=== PATIENT | male | born 1955 | race Caucasian/White ===

== ENCOUNTER 2022-05-05 09:54 | Emergency (ER) | payer MEDICARE, SELFPAY ==
--- NOTE | ~2022-05-05 | CT_ITS ---
EXAMINATION: CT abdomen pelvis w con DATE: 05/05/2022 10:55 INDICATION: Left lower quadrant abdominal pain. TECHNIQUE: Computed tomography (CT) of the abdomen and pelvis was performed with 100 mL Omnipaque-350 intravenous contrast. Automated exposure control and iterative reconstruction technique were employe d. The dose-length product was 345.63 mGy-cm. COMPARISON: None FINDINGS: Minimal dependent atelectasis in the bilateral lower lobes. Heart size is normal. No pericardial or p leural effusion. Small amount of focal hepatic steatosis along the ligamentum teres. Gallbladder, williamson creas, bilateral adrenal glands are normal. Small bilateral renal cysts the larger on the right measu ring 1.2 cm . A few splenic calcifications consistent with old granulomatous disease. Normal appendix . Moderate scattered colonic diverticulosis with sigmoid colon predominance. There is prominent wall thickening throughout the sigmoid colon but which appears more extensive than typical for either dive rticulitis or malignancy and would favor a focal colitis. There is a subtle thin tract of soft tissue density containing between 3 separate locations along the sigmoid colon and could not exclude fistul ous communication. There is mild fatty infiltration of the wall of the terminal ileum which can be se en in the setting of prior inflammation. Bladder is normal. No abscess or free intraperitoneal gas or fluid. No pathologically enlarged abdominal or pelvic lymphadenopathy. Mild lumbar dextroscoliosis w ith severe spondylosis. IMPRESSION: 1. Prominent wall thickening along the sigmoid colon which could be due to focal colitis either infec tious, inflammatory such as Crohn's disease or less likely ischemic in etiology with differential inc luding less likely diverticulitis or malignancy. There is also suggestion of possible fistulous commu nication between 3 separate locations along the sigmoid colon. Consider further evaluation with colon oscopy when clinically improved. Reviewed, dictated and finalized at location A. IMPRESSION: 1. Prominent wall thickening along the sigmoid colon which could be due to foca l colitis either infectious, inflammatory such as Crohn's disease or less likel y ischemic in etiology with differential including less likely diverticulitis o r malignancy. There is also suggestion of possible fistulous communication betw een 3 separate locations along the sigmoid colon. Consider further evaluation w ith colonoscopy when clinically improved.
[2022-05-05 10:12] LABS: Basophils Absolute Auto 0.1 K/mm3 (0.0-0.1); Basophils Percent Auto 1.1 % (0.2-1.2); Eosinophils Absolute Auto 0.2 K/mm3 (0-0.3); Eosinophils Percent Auto 2.5 % (0-4.4); Hematocrit 45.2 % (42.0-52.0); Hemoglobin 14.8 g/dL (14.0-18.0); Immature Granulocyte Absolute 0.02 K/mm3 (0.00-0.031); Immature Granulocyte Percent A 0.3 % (0-0.5); Lymphocytes Percent Auto 27.6 % (18.3-44.2); Mean Corpuscular HGB Conc 32.7 g/dl (32-36); Mean Corpuscular Hemoglobin 30.5 pg (26-34); Mean Corpuscular Volume 93.2 fl (80-100); Mean Platelet Volume 10.6 fl (7.4-10.4); Monocytes Absolute Auto 0.5 K/mm3 (0.1-0.6); Monocytes Percent Auto 7.1 % (2.6-8.5); Neutrophils Absolute Auto 4.7 K/mm3 (1.3-6.7); Neutrophils Percent Auto 61.4 % (45.5-73.1); Platelet Count Result 216 k/mm3 (150-375); Red Blood Count 4.85 M/mm3 (4.6-6.20); Red Cell Distribution Width 13.5 % (11.5-14.5); White Blood Count 7.6 K/mm3 (4.5-10.0)
[2022-05-05 10:15] VITALS: BP 210/114; PULSE 66; RESP 18; O2SAT 100
[2022-05-05 10:20] LABS: Alanine Aminotransferase 27 U/L (6-50); Albumin Level 4.5 g/dL (3.5-5.1); Alkaline Phosphatase 80 U/L (38-126); Anion Gap 17 mmol/L (8-16); Aspartate Amino Transferase 30 U/L (17-59); Bilirubin,Total 0.6 mg/dL (0.2-1.3); Blood Urea Nitrogen 21 mg/dL (9-20); Carbon Dioxide 23 mmol/L (22-30); Chloride 102 mmol/L (98-107); Estimated Glomerular Filt Rate 60; Glucose 116 mg/dL (65-110); Lipase 87 U/L (23-300); Potassium 3.9 mmol/L (3.4-5.0); Sodium 142 mmol/L (137-145)
--- NOTE | 2022-05-05 10:24 | ED.ABDPAIN ---
HPI - Abdominal Pain General Chief Complaint: Abdominal Pain <MIRA Macedo Last Filed: 05/05/22 17:33> Stated Complaint: abd pain, diverticulitis <MIRA Macedo Last Filed: 05/05/22 17:33> Time Seen by Provider: 05/05/22 10:17 <MIRA Macedo Last Filed: 05/05/22 17:33> History of Present Illness HPI narrative: 66-year-old male here for evaluation of intermittent left lower quadrant abdominal pain for the past 2 and half weeks. Patient states the pain is crampy and severe in nature, is coming and going, and is similar to previous diverticulitis flare-ups. He also notes constipation, he did have good relief of his pain several days ago after having a bowel movement, but notes that he is still backed up . He tried to get in contact with his PCP who recommended ED evaluation. Denies fevers, chills, nausea, vomiting, dysuria, urgency or frequency. Has no history of high blood pressure. <MIRA Macedo Last Filed: 05/05/22 17:33> Related Data Allergies/Adverse Reactions: Allergies Allergy/AdvReac Type Severity Reaction Status Date / Time No Known Allergies Allergy Verified 05/05/22 10:15 <MIRA Macedo Last Filed: 05/05/22 17:33> Review of Systems Review of Systems: Gen: Denies fevers or chills Eyes: Denies eye pain or visual change ENT: Denies congestion Respiratory: Denies shortness of breath or cough CV: Denies chest pain or palpitations GI: Reports left lower quadrant abdominal pain and constipation. Denies nausea, emesis or diarrhea denies burning, urgency, frequency or hematuria Musculoskeletal: Denies back pain or muscle pain Neuro: Denies numbness, tingling, weakness or focal weakness Skin: Denies rash Except as documented, all other systems reviewed and negative <MIRA Macedo Last Filed: 05/05/22 17:33> Exam Narrative: APPEARANCE: Well appearing, no pain in distress, well-nourished. Head: Normocephalic and atraumatic. EYES: PERRLA/EOMI, conjunctivae clear NOSE: No nasal drainage EARS: External ear normal in appearance THROAT: Oropharynx is clear. Mucous membranes are moist. NECK: Supple. No adenopathy, no masses. RESPIRATORY: Airway patent, respirations nonlabored. Clear to auscultation bilaterally, no rales, rhonchi, wheezing. CARDIOVASCULAR: Regular rate and rhythm without murmurs, rubs, or gallops. ABDOMINAL: No abdominal tenderness. Normoactive bowel sounds. Soft, nondistended. No rebound tenderness or guarding. MUSCULOSKELETAL: Extremities are warm and well-perfused. Moves all extremities well. No edema. NEURO: Normal speech. No focal neurologic deficits. SKIN: Skin is warm and dry. No rashes. PSYCHIATRIC: Normal affect/mood.. <Marie Healy PA-C - Last Filed: 05/05/22 17:33> Course INDUSTRIAL FABRIC CUTTER/PA Physician Supervision For this patient encounter, I reviewed the INDUSTRIAL FABRIC CUTTER or PA documentation, treatment plan, and medical decision making <John Kaufman MD - Last Filed: 05/06/22 07:14> Vital Signs Vital signs: Vital Signs Pulse Rate 66 05/05/22 10:15 Respiratory Rate 18 05/05/22 10:15 Blood Pressure 210/114 H 05/05/22 10:15 Pulse Oximetry 100 05/05/22 10:15 Pulse Rate 54 L 05/05/22 13:34 Respiratory Rate 18 05/05/22 13:34 Blood Pressure 183/89 H 05/05/22 13:34 Pulse Oximetry 99 05/05/22 13:34 <Marie Healy PA-C - Last Filed: 05/05/22 17:33> Vital Signs Pulse Rate 66 05/05/22 10:15 Respiratory Rate 18 05/05/22 10:15 Blood Pressure 210/114 H 05/05/22 10:15 Pulse Oximetry 100 05/05/22 10:15 Pulse Rate 54 L 05/05/22 13:34 Respiratory Rate 18 05/05/22 13:34 Blood Pressure 183/89 H 05/05/22 13:34 Pulse Oximetry 99 05/05/22 13:34 <John Kaufman MD - Last Filed: 05/06/22 07:14> MDM - Abdominal Pain MDM Narrative Medical decision making narrative: 66-year-old male here for e
[2022-05-05 10:34] VITALS: BP 179/94; PULSE 58; RESP 16; O2SAT 99
[2022-05-05 10:48] LABS: Appearance Urine Clear (Clear); Bilirubin Urine Negative (Negative); Blood Urine Negative (Negative); Color Urine Yellow (Yellow); Glucose Urine UA Negative (Negative); Ketones Urine Negative (Negative); Leukocyte Esterase Ur Negative LEU/UL (Negative); Nitrate Urine Negative (Negative); Protein Urine 2+ mg/dL (Negative); Specific Grav Ur 1.025 (1.001-1.035); Urobilinogen Urine 0.2 mg/dL (<2.0); pH Urine 5.5 (5.0-9.0)
[2022-05-05 10:59] LABS: Add Urine Microscopic? YES; Bacteria Urine Trace /hpf; Mucus Urine Heavy /lpf; WBC Urine 0-3 /hpf (0-3)
[2022-05-05 11:45] VITALS: BP 190/89; PULSE 54; RESP 16; O2SAT 100
[2022-05-05] MEDS: hydrALAZINE HCL 20 MG/ML VIAL 10 MG IV PUSH (12:43)
[2022-05-05 13:01] LABS: Lactic Acid Reflex 0.9 mmol/L (0.7-2.0)
[2022-05-05 13:34] VITALS: BP 183/89; PULSE 54; RESP 18; O2SAT 99
== END 2022-05-05 13:35 | disposition home or self-care (01) ==
PROVIDERS: Physician Assistant; Emergency Provider Emergency Medicine
DX: K57.32 Diverticulitis of large intestine without perforation or abscess without bleeding (principal)
CPT/HCPCS: 36415; 74177; 80053; 81001; 83605; 83690; 85025; 96374; 99284; J0360; Q9967

== ENCOUNTER 2022-08-04 08:09 | Outpatient (CLI) | payer MEDICARE, SELFPAY ==
[2022-08-04 18:57] LABS: Alanine Aminotransferase 42 U/L (6-50); Albumin Level 4.3 g/dL (3.5-5.1); Alkaline Phosphatase 92 U/L (38-126); Anion Gap 4 mmol/L (8-16); Aspartate Amino Transferase 52 U/L (17-59); Bilirubin,Total 0.7 mg/dL (0.2-1.3); Blood Urea Nitrogen 24 mg/dL (9-20); Calcium 9.4 mg/dL (8.4-10.2); Carbon Dioxide 31 mmol/L (22-30); Chloride 103 mmol/L (98-107); Cholesterol 171 mg/dL (0-200); Estimated Glomerular Filt Rate 60; Glucose 97 mg/dL (65-110); HDL Direct 33 mg/dL; Potassium 5.1 mmol/L (3.4-5.0); Sodium 138 mmol/L (137-145); Triglycerides 107 mg/dL (<150)
[2022-08-04 18:59] LABS: Hemoglobin A1C 5.3 % (<5.7)
[2022-08-04 19:13] LABS: LDL Cholesterol Direct 106 mg/dL
[2022-08-04 19:22] LABS: Creatinine Urine 88.3 mg/dL
[2022-08-04 19:26] LABS: MALB Creatinine Ratio 167.8 mg/g (0-30); Microalbumin Urine Random 148.2 mg/L (0-16.7)
== END 2022-08-04 08:10 | disposition home or self-care (01) ==
LOC: ANHGOSHLAB 08:11
PROVIDERS: PCP Emergency Medicine; Visit Provider Emergency Medicine
DX: I16.0 Hypertensive urgency (principal)
CPT/HCPCS: 36415; 80053; 80061; 82043; 83036

== ENCOUNTER 2022-09-07 14:18 | Outpatient (CLI) | payer MEDICARE, SELFPAY ==
[2022-09-07 19:26] LABS: Prostate Specific Antigen 0.6 ng/mL (< OR = 4.0)
== END 2022-09-07 14:19 | disposition home or self-care (01) ==
LOC: ANHGOSHLAB 14:20
PROVIDERS: PCP Emergency Medicine; Visit Provider Emergency Medicine
DX: Z12.5 Encounter for screening for malignant neoplasm of prostate (principal)
CPT/HCPCS: 36415; 84153; G0103

== ENCOUNTER → 2022-09-21 08:17 | Outpatient (CLI) | payer MEDICARE, SELFPAY ==
--- NOTE | ~2022-09-21 | US_ITS ---
Ultrasound of the Abdominal Aorta INDICATION: Tobacco use, abdominal aortic aneurysm TECHNIQUE: Grayscale, color Doppler, and pulsed Doppler images of the aorta and common iliac arteries were obtained. COMPARISON: None. FINDINGS: Maximum vascular dimensions are as follows: Proximal aorta: 2.6 cm Mid aorta: 2.1 cm Distal aorta: 1.8 cm Right common iliac artery: 1.1 cm Left common iliac artery: 1.0 cm There is no evidence of abdominal aortic aneurysm. IMPRESSION: No evidence for abdominal aortic aneurysm. Reviewed, dictated and finalized at location M. ATION ENGINEER
--- NOTE | ~2022-09-21 | CT_ITS ---
EXAMINATION:CT lung screening DATE: 09/21/2022 08:39 INDICATION: Tobacco use. Current smoker with 20 pack year history. TECHNIQUE: Computed tomography (CT) of the chest was performed without intravenous contrast. Automate d exposure control and iterative reconstruction technique were employed. The dose-length product (DLP ) was 91.18 mGy-cm. COMPARISON: CT abdomen and pelvis 05/05/2022 FINDINGS: There is an 8 mm nodule in left lower lobe, stable from 05/05/22. There are a few other nodul es in the lungs measuring up to 5 mm. A calcified left lung nodule and calcified left hilar lymph nod e are consistent with old granulomatous disease. No pleural effusion. There are nodules in the thyroi d measuring up to 1.4 cm, likely not clinically significant. There is mild bilateral gynecomastia. Th e heart size is normal. There are coronary artery calcifications. No pericardial effusion. There is a 2.4 x 1.4 cm high right paratracheal lymph node. Calcifications in the liver and spleen are consiste nt with old granulomas disc disease. There is mild thoracic spondylosis and severe cervical spondylos is. IMPRESSION: 1. Lung-RADS category 3: Probably benign. Further evaluation is recommended with noncontrast low-dose chest CT in 6 months. Reviewed, dictated and finalized at location A. RONMENTAL DIRECTOR IMPRESSION: 1. Lung-RADS category 3: Probably benign. Further evaluation is recommended wit h noncontrast low-dose chest CT in 6 months.
== END ==
PROVIDERS: PCP Emergency Medicine; Visit Provider Emergency Medicine
DX: F17.210 Nicotine dependence, cigarettes, uncomplicated (principal); R91.1 Solitary pulmonary nodule
CPT/HCPCS: 71271; 76706

== ENCOUNTER 2023-09-06 00:53 | Day surgery (SDC) | payer OTHER, SELFPAY ==
[2023-08-11 14:44] VITALS: BMI 22.1
--- NOTE | 2023-09-03 09:49 | SUR.PREOP ---
Patient called regarding upcoming procedure. Voicemail left regarding new appointment times.
--- NOTE | 2023-09-05 11:01 | PM.HPGS ---
History of Present Illness History of Present Illness Consent: Risks, benefits, and alternatives have been discussed and questions answered. Patient agrees to proceed with procedure. Chief complaint: Diverticulitis of large intestine Narrative: Yamil Reinoso is a 68 year old male was referred for colonoscopy. He states that he had diverticulitis a couple months ago. That was self diagnosed apparently, as far as I can determine, not treated. he did have diverticulitis purportedly in 2021. The CT scan that I found reads as: 1. Prominent wall thickening along the sigmoid colon which could be due to focal colitis either infectious, inflammatory such as Crohn's disease or less likely ischemic in etiology with differential including less likely diverticulitis or malignancy. There is also suggestion of possible fistulous communication between 3 separate locations along the sigmoid colon. Consider further evaluation with colonoscopy when clinically improved. obviously, he did not have a colonoscopy after that he has had multiple attacks of diverticulitis. His last colonoscopy, about 10 years ago was following an attack of diverticulitis. He remembers being very bloated and uncomfortable after the procedure and was later told that it had been done too close to his episode of diverticulitis he denies seeing blood in his stools. Review of Systems Review of Systems: All systems reviewed & are unremarkable except as noted in HPI and below PMFSH Social History Social History Smoking packs per day: 0.5 Smoking cigarettes per day: 10.0 Years smoked: 30 Smoking pack-years: 15.00 Smoking status: Current every day smoker Tobacco type: cigarettes Alcohol intake: current Drinks per week: 5 Substance use: never Substance use type: does not use Lack of Transportation: No Lack of Food: Never True Current Housing: I Have Housing Concerned About Future Housing: No Difficulty Paying Gas/Electric Bills: No Difficulty Paying for Meds: No Currently Unemployed: YES Education: Trade/Vocational Certificate Difficulty w/ Childcare or Family Care: No Living arrangements: with family Spiritual care concerns: No Meds Home Medications and Allergies Home Medications Medication Instructions Recorded Confirmed Type hydrochlorothiazide 25 mg tablet 25 mg PO DAILY #90 tabs 07/19/23 09/06/23 Rx Allergies Allergy/AdvReac Type Severity Reaction Status Date / Time No Known Allergies Allergy Verified 09/06/23 08:45 Exam Resp: Auscultation: clear to auscultation bilaterally Cardio: Rate: regular rate Rhythm: regular rhythm GI: GI Palp: Yes Soft to palpation and No Tenderness to palpation present (GI) Assessment and Plan Assessment and plan (1) Diverticulitis: Code(s): K57.92 - Diverticulitis of intestine, part unspecified, without perforation or abscess without bleeding Status: Acute
[2023-09-06 08:46] VITALS: BP 165/90; PULSE 65; RESP 20; TEMP 36.1; O2SAT 100
[2023-09-06] MEDS: LACTATED RINGERS 1,000 ML 150 ML IV CONT (08:50)
--- NOTE | 2023-09-06 09:34 | P.PNAN_ITS ---
Anes - Initial Pre Proc Eval Procedure: Operation Date: 09/06/23 09:30 Proposed Procedures p Colonoscopy - Abhishek Richmond MD Date/Time: 09/06/23 09:34 Surgeon: Abhishek Richmond MD Pre Op Diagnosis: Diverticulitis of large intestine Patient Data Age: 68 Gender: M Height: 1.83 m Weight: 66.8 kg Last Vital Signs Temp 96.9 F L 09/06/23 08:46 Pulse 65 09/06/23 08:46 Resp 20 09/06/23 08:46 BP 165/90 H 09/06/23 08:46 Pulse Ox 100 09/06/23 08:46 O2 Del Method Room Air 09/06/23 08:46 Allergies Allergy/AdvReac Type Severity Reaction Status Date / Time No Known Allergies Allergy Verified 09/06/23 08:45 Home Medications Medication Instructions Recorded Confirmed Type hydrochlorothiazide 25 mg tablet 25 mg PO DAILY #90 tabs 07/19/23 09/06/23 Rx Patient hx anesthesia problems: none Family hx anesthesia problems: none Results Review: All pre-operative results and documents have been reviewed as part of the pre- operative evaluation. [facility] Social History Social History Smoking packs per day: 0.5 Smoking cigarettes per day: 10.0 Years smoked: 30 Smoking pack-years: 15.00 Smoking status: Current every day smoker Tobacco type: cigarettes Alcohol intake: current Drinks per week: 5 Substance use: never Substance use type: does not use Lack of Transportation: No Lack of Food: Never True Current Housing: I Have Housing Concerned About Future Housing: No Difficulty Paying Gas/Electric Bills: No Difficulty Paying for Meds: No Currently Unemployed: YES Education: Trade/Vocational Certificate Difficulty w/ Childcare or Family Care: No Living arrangements: with family Spiritual care concerns: No Anes - Eval Final PreProcedure Day of Procedure 09/06/23 09:34 Patient weight: normal Heart: regular rate and rhythm Lungs: clear to auscultation Airway: Mallampati scale class II Neurological: alert and oriented Last oral intake: >/= 8 hours ASA classification: II Emergent: no Anesthetic plan: proceed Anesthesia type and monitoring: general GIVS and standard monitoring Results Review: All pre-operative results and documents have been reviewed as part of the pre- operative evaluation. Informed Consent: The patient's anesthetic plan and its attendant risks and benefits were discussed with the patient/family/POA. Questions were solicited and answers provided to the satisfaction of the patient/family/POA.
[2023-09-06 10:11] VITALS: BP 126/82; PULSE 52; RESP 23; O2SAT 100
[2023-09-06 10:21] VITALS: BP 156/99; PULSE 53; RESP 20; O2SAT 100
[2023-09-06 10:31] VITALS: BP 162/99; PULSE 56; RESP 20; O2SAT 100
== END 2023-09-06 10:38 | disposition home or self-care (01) ==
PROVIDERS: PCP Emergency Medicine; Visit Provider Internal Medicine Gastroenterology
PROC: 0DJD8ZZ Inspection of Lower Intestinal Tract, Via Natural or Artificial Opening Endoscopic (ICD-10-PCS; CPT 45378; principal; 2023-09-06 09:30)
DX: K57.32 Diverticulitis of large intestine without perforation or abscess without bleeding (principal); F17.210 Nicotine dependence, cigarettes, uncomplicated
CPT/HCPCS: 45378; J2704; J7120

== ENCOUNTER 2023-12-31 10:35 | Outpatient (CLI) | payer OTHER, SELFPAY ==
--- NOTE | ~2023-12-31 | CT_ITS ---
CT of the Abdomen and Pelvis: Indication: Diverticulitis Technique: 2.5 mm axial scans were obtained through the abdomen and pelvis following intravenous adm inistration of 100 cc of Omnipaque 350. Dose reduction technique was used on this scan by utilizing a utomated exposure control and iterative reconstruction technique. The dose-length product (DLP) was 4 31.99 mGy-cm. COMPARISON: 05/05/2022 Findings: Scans through the lung bases demonstrates stable 6 mm left lower lobe pulmonary nodule.. The liver, spleen, pancreas, gallbladder, adrenals and kidneys are within normal limits. There are at herosclerotic calcifications of the aorta. No lymphadenopathy. There is extensive bowel wall thickening of the sigmoid colon with underlying diverticular disease, s imilar to prior exam. Questionable colo-colonic fistulas are also similar similar to prior exam. Poss ible minimal pericolonic inflammatory stranding. No abscess or free air. No bowel obstruction. Images through the pelvis were performed. Urinary bladder unremarkable. No pelvic mass seen. No ascit es. Impression: Extensive wall thickening of the distal sigmoid colon, similar to prior exam. Correlate for acute mil d diverticulitis versus chronic wall thickening due to muscular hypertrophy due to underlying diverti cular disease. Reviewed, dictated and finalized at location M. Impression: Extensive wall thickening of the distal sigmoid colon, similar to prior exam. C orrelate for acute mild diverticulitis versus chronic wall thickening due to mu scular hypertrophy due to underlying diverticular disease.
[2023-12-31 10:59] LABS: Estimated Glomerular Filt Rate 50
== END 2023-12-31 10:36 ==
PROVIDERS: PCP Emergency Medicine; Visit Provider Emergency Medicine
DX: K57.92 Diverticulitis of intestine, part unspecified, without perforation or abscess without bleeding (principal)
CPT/HCPCS: 74177; Q9967

== ENCOUNTER 2024-11-08 11:11 | Outpatient (CLI) | payer OTHER, SELFPAY ==
--- OUTSIDE RECORDS SUMMARY | 2024-11-08 12:57 | XMS_ITS | Continuity of Care Document ---
Author Organization [facility] Address [address] [place] [address] Phone Care Team Providers Care Wool Buyer Name Role Phone Roly Alcala MD Unavailable Unavailable Allergies, Adverse Reactions, Alerts Substance Reaction Status Criticality No Known Drug Allergies Other Active No I nformation Medications Medication Instructions Dosage Effective Dates (start - stop) Status Comments Flagyl 500 mg tablet take 1 tablet by or al route 3 times every day - Active Cipro 500 mg tablet take 1 by Oral route 2 times every day for 7 days 1 - Active Advance Directives Directive Yes / No Effective Date File Name No Information Encounters Encounter Description Practice Location Reason(s) For Visit Diagnoses Date Provider Providers Copied on Encounter [facility], [address], [place], [place], [address] , tel: [phone] [facility] No Information -202 0 Carikendy Dunham. [address], [facility] [address], [place], [place], [address], [place]. tel:[phone] [facility], [address], [place], [place], [address] , [place] tel: [phone] [facility] No Information 1-201 8 Carikendy Dunham. [address], [facility] [address], [place], [place], [address], . tel:[phone] [facility], [address], [place], [place], [address] , [place] tel: [phone] [facility] Acute diverticulitis 8 Sam Salazar. [address] [place] [address], [facility], [place], [place], [address], [place]. tel:[phone] Referring Provider: Roly Alcala, [address] [place] [address] [address], [place], [address] . tel:[phone] [facility], [address], [place], [place], [address] , tel: [phone] [facility] Spinal enthesopathy 6 Cari Dunham. [address] [place] [address], [facility] [address], [place], [place], [address], [place]. tel:[phone] Referring Provider: Rloy Alcala, [address] [place] [address], [place], [address] . tel:[phone] [facility], [address], [place], [place], [address] , tel: [phone] [facility] Constipation, unspecified constipation typeAbdominal pain of unknown causeEncounter for screening for malignant neoplasm of prostate 6 Cari Dunham. [address] [place] [address], [place] [address], [place], [place], [address], [place]. tel:[phone] Referring Provider: Roly Alcala, [address] [place] [address], [place], [address] . tel:[phone] [facility], [address], [place], [place], [address] , [place] tel: [phone] [facility] Swelling of lymph nodeNicotine dependence, unspecified, uncomplicated 5 Halenkamp Marguerite. [address] [place] [address], [facility], [place], [place], [address]. tel:[phone] Referring Provider: Roly Alcala, [address] [place] [address], [place], [address] . tel:[phone] [facility], [address], [place], [place], [address] , tel: [phone] [facility] Lower abdominal painConstipation 5 Sam Salazar. [address] [place] [address], [facility], [place], [place], [address], . tel:[phone] Referring Provider: Roly Alcala, [address] [place] [address], [place], [address] . tel:[phone] [facility], [address], [place], [place], [address] , tel: [phone] [facility] Poison josh dermatitis 3 Sam Salazar. [address], [facility], [place], [place], [address], [place]. tel:[phone] Referring Provider: Roly Alcala, [address] [place] [address], [place], [address] . tel:[phone] [facility], [address], [place], [place], [address] , tel:[phone] [facility] Thoracic or lumbosacral neuritis or radiculitis, uDegeneration of lumbar or lumbosacral intervertebrTobac co use disorderRash and other nonspecific skin eruption 2 Sammy Mejia. [address] [place] [address], [facility] [address], [place], [place], [address]. tel:[phone] Referring Provider: Roly Alcala, [address] [place] [address], [place], [address] . tel:[phone] [facility], [address], [place], [place], [address] , tel: [phone] [facility] Tobacco use disorderDegenerat ion of lumbar or lumbosacral intervertebral discThoracic or lumbosacral neuritis or radiculitis, unspecifiedDIVERT ICULOSISDiverticu losis of colon (without mention of hemorrhage)Divert iculosis of colon (without mention of hemorrhage)zRHMSP ECIAL SCREENING FOR MALIGNANT NEOPLASMS, OTHER SITESSPECIAL SCREENING FOR MALIGNANT NEOPLASMS, OTHER SITESSPECIAL SCREENING FOR MALIGNANT NEOPLASMS, OTHER SITESAllergic rhinitis, cause unspecified 2 Sammy Mejia. [address], [address], [place], [place], [address]. tel:[phone] Referring Provider: Roly Alcala, [address] [place] [address] [address], [place], [address] . tel:[phone] [facility], [address], [place], [place], [address] , [place] tel: [phone] [facility] SEBACEOUS CYST 2 9 Cari Dunham. [address] [place] [address], [address], [place], [place], [address], [place]. tel:[phone] [facility], [address], [place], [place], [address] , [place] tel: [phone] [facility] BACKACHE NOS 2 9 Patrice Jacobson. [address] [place] [address], [address], [place], [place], [address], [place]. tel:[phone] [facility], [address], [place], [place], [address] , [place] tel: [phone] [facility] DERMATOPHYTOSIS OF GROIN 8200 6 Cari May. [address] [place] [address], [address], [place], [address], [place]. tel:[phone] [facility], [address], [place], [place], [address] , [place] tel: [phone] [facility] DVRTCLI COLON W/O HMRHG 6 Rhonda [place]. [address] [place] [address], [address], [place], [place], [address], [place]. tel:[phone] [facility], [address], [place], [address] , [place] tel:[phone] [facility] ABDMNAL PAIN UNSPCF [address] 6 Cari uDnham. [address] [place] [address], [address], [place], [place], [address], [place]. tel:[phone] [facility], [address], [place], [place], [address] , [place] tel:[phone] [facility] No Information 6 Cari Dunham. [address], [address], [place], [place], [address], [place]. tel:[phone] [facility], [address], [place], [place], [address] , [place] tel: [phone] [facility] ENTERITIS OF INFECT ORIG 6 Cari May. [address], [address], [place], [address], [place]. tel:[phone] [facility], [address], [place], [place], [address] , [place] tel: [phone] [facility] EATING DISORDER NOSTOBACCO USE DISORDER 5 Cari Dunham. [address], [address], [place], [place], [address], [place]. tel:[phone] [facility], [address], [place], [place], [address] , [place] tel: [phone] [facility] ALLERGIC RHINITIS NOSDEPRESSIVE DISORDER NEC 5 Gamichelle Mejia. [address], [address], [place], [place], [address]. tel:[phone] [facility], [address], [place], [place], [address] , [place] tel: [phone] [facility] MALAISE AND FATIGUE NECSCRN MALIG NEOP-PROSTATECONS TIPATION NOS 5 Cari Dunham. [address] [place] [address], [address], [place], [place], [address], [place]. tel:[phone] [facility], [address], [place], [place], [address] , [place] tel: [phone] [facility] OT SPCF PREOP EXAM 1 Con[facility] Doctor. [address], [place], [address], [place]. [facility], [address], [place], [address] , [place] tel: [phone] [facility] DIARRHEASCIATICA 1 Patrice Jacobson. [address] [place], [place] [address], [address], [place], [place], [address], [place]. tel:[phone] [facility], [address], [place], [place], [address] , [place] tel: [phone] [facility] SPINAL STENOSIS-LUMBAR Feb-2 0-200 1 Conversion Doctor. [address] [facility], [place], [address], [place]. Family History Family Member Type Diagnosis Age At Onset Father Problem (finding) diabetes melli tus in first degree relative Problem (finding) No family hist ory of Colon or prostate CA Problem (finding) No family hist ory of Coronary artery disease Immunizations Vaccine Date Status Comments SHINGRIX (Zoster vaccine recombinant, adjuvanted) administered Note: [facility] ; Source: Other Provider influenza, high dose seasona l, preservative-free administered Note: [facility] ; So urce: Other Provider Payers Payer name Insurance type Covered green party ID Authoriza tion(s) No Information Social History Type Description Quantity Date Captured Comments Alcohol Use Details Unknown Caffeine Use Details Unknown Tobacco Use Status Smoking Status No Information Sex Male Sexual Orientation Choose not to disclose Gender Identity Male Chief Complaint And Reason For Visit No [...]
--- OUTSIDE RECORDS SUMMARY | 2024-11-08 12:57 | XMS_ITS | Referral Summary ---
Author Organization [facility] Address [address] [facility] [place] [address] Care Team Providers Care Shipping Room Supervisor Name Role Phone Perez Alcala MD Primary Care Provider [phone] Source Comments [facility],non-owned Affiliates and Associated Physician Practices is amultiple site organization consisting of ambulatory clinics and hospital sitesin [place], [place], [place] and [place]. This disclosure is being madepursuant to the Care Everywhere program and may not contain all information available regarding this patient. Last updated 18.[facility] Allergies Active Allergy Reactions Criticality Noted Date Comments Extract Of Poison Yue 10/15/2015 Medications Be aware that medications may not be up to date on this document. Always verify current medications with the patient. No known medications Social History Tobacco Use Types Packs/Day Years Used Date Smoking Tobacco: Light Smoker Alcohol Use Standard Drinks/Week Comments Yes 0 (1 standard drink = 0.6 oz pur e alcohol) occasional Sex and Gender Information Value Date Recorded Sex Assigned at Not on file Gender Identity Not on file Sexual Orientation Not on file Last Filed Vital Signs Vital Sign Reading Time Taken Comments Blood Pressure 178/113 02/14/2016 1:05 PM CDT Pulse 52 02/14/2016 1:05 PM CDT Temperature 36.3 C (97.4 F) 02/14/2016 11:17 AM CDT Respiratory Rate 14 02/14/2016 1:05 PM CDT Oxygen Saturation 100% 02/14/2016 1:05 PM CDT Inhaled Oxygen Concentration - - Weight 74.8 kg (165 lb) 02/14/2016 11:17 AM CDT Height 182.9 cm (6') 02/14/2016 11:17 AM CDT Body Mass Index 22.38 02/14/2016 11:17 AM CDT Functional Status Functional Status Response Date of Assess ment Is person deaf or have serious hearing difficult y? No 11/22/2015 Plan of Treatment Not on file Procedures Procedure Name Priority Date/Time Associated Diagnosis Comments ENDOSCOPY, COLON, SCREENING Routine 02/14/2016 11:15 AM CDT from Last 3 Months or Most Recently Relevant to Health Maintenance Results * ENDOSCOPY, COLON, SCREENING (02/14/2016 11:15 AM CDT) Report Endoscopy POC _ Patient Name: Yamil Reinoso Procedure Date: 02/14/2016 11:15 AM Date of : 1955 Admit Type: Outpatient Age: 60 Gender: Male Attending MD: Monse Encarnacion, _ Procedure: Colonoscopy Indications: Follow-up of diverticulitis Providers: Monse Encarnacion (Doctor), Mimi Kapoor RN, Jerrica Call RN Patient Profile: 60M pmh diverticulitis earlier this year is here for followup. last exam incomplete Referring MD: Perez Alcala MD (Referring MD) Medicines: Monitored Anesthesia Care Complications: No immediate complications. _ Procedure: After I obtained informed consent, the scope was passed under direct vision. Throughout the procedure, the patient's blood pressure, pulse, and oxygen saturations were monitored continuously. The Colonoscope was introduced through the anus and advanced to the cecum, identified by appendiceal orifice and ileocecal valve. The colonoscopy was technically difficult and complex due to multiple diverticula in the colon, restricted mobility of the colon and significant looping. Successful completion of the procedure was aided by using manual pressure and withdrawing the scope and replacing with the pediatric endoscope. Impression: - Diverticulosis in the entire examined colon. - The examination was otherwise normal on direct and retroflexion views. - Erythematous mucosa in the recto-sigmoid colon (suspected endoscope trauma due to technically difficult procedure). Biopsied. - Internal hemorrhoids. Findings: The perianal and digital rectal examinations were normal. Multiple small and large-mouthed diverticula were found in the entire colon. The exam was otherwise without abnormality on direct and retroflexion views. A localized area of moderately erythematous mucosa was found in the recto-sigmoid colon at 20cm. Biopsies were taken with a cold forceps for histology. Suspect endoscope trauma Internal hemorrhoids were found during retroflexion. The hemorrhoids were small. _ Recommendation: - Discharge patient to home. - Good exam today; would Repeat colonoscopy in 10 years for screening purposes. - High fiber diet. Procedure Code(s): --- Professional --- 74953, Colonoscopy, flexible; with biopsy, single or multiple --- Technical --- 77470, Colonoscopy, flexible; with biopsy, single or multiple Diagnosis Code(s): --- Professional --- K64.8, Other hemorrhoids K63.89, Other specified diseases of intestine K57.32, Diverticulitis of large intestine without perforation or abscess without bleeding K57.30, Diverticulosis of large intestine without perforation or abscess without bleeding --- Technical --- K64.8, Other hemorrhoids K63.89, Other specified diseases of intestine K57.32, Diverticulitis of large intestine without perforation or abscess without bleeding K57.30, Diverticulosis of large intestine without perforation or abscess without bleeding CPT copyright 2015 [employer]. All rights reserved. The codes documented in this report are preliminary and upon measurement analyst review may be revised to meet current compliance requirements. Monse Encarnacion, 02/14/2016 12:46:11 PM This report has been signed electronically. Number of Addenda: 0 Note Initiated On: 02/14/2016 11:15 AM [facility] ENDOSCOPY 02/14/2016 11:1 5 AM CDT Monse Encarnacion MD GI PROCEDURE ORDERAB LES Performing Organization Address City/State/[facility] Co de Phone Number [facility] ENDOSCOPY from Last 3 Months or Most Recently Relevant to Health Maintenance Care Teams Shipping Room Supervisor Relationship Specialty Start Date End Date Perez Alcala MD [address] [place] [address], [phone] PCP - General Family Medicine 10/14/15
--- OUTSIDE RECORDS SUMMARY | 2024-11-08 12:57 | XMS_ITS | Patient Health Summary ---
Author Organization [email or web address] Address [address] [place] [address] Care Team Providers Care Tow Motor Operator Name Role Phone Perez Alcala MD Primary Care Provider [phone] Note from [email or web address],non-owned Affiliates and Associated Physician Practices is amultiple site organization consisting of ambulatory clinics and hospital sitesin [place], [place], [place] and [place]. This disclosure is being madepursuant to the Care Everywhere program and may not contain all information available regarding this patient. Last updated 18.[email or web address] Allergies * Extract Of Poison Yue Medications Be aware that medications may not [...] Mass Index 22.38 02/14/2016 11:17 AM CDT Procedures * PATHOLOGY TISSUE EXAM (STL)(Performed 02/14/2016) Performed for Diverticulitis, colon * COLONOSCOPY BIOPSY (ANY METHOD)(Performed 02/14/2016) Performed for Diverticulitis, colon * COLONOSCOPY SCREEN(Performed 02/14/2016) Performed for Diverticulitis, colon * ENDOSCOPY, COLON, SCREENING(Performed 02/14/2016) * XR ABD OBSTRUCTION SERIES 2VW(Performed 11/22/2015) Performed for Generalized abdominal pain * COLONOSCOPY SCREEN(Performed 11/22/2015) Performed for Diverticulitis of colon * ENDOSCOPY, COLON, SCREENING(Performed 11/22/2015) * GROSS + MICRO EXAM(Performed 07/07/2005) * GROSS + MICRO EXAM(Performed 03/28/2001) Results * GROSS + MICRO EXAM (STL) (02/14/2016 12:33 PM CDT) Case Report Surgical Pathology Report Case: [id number] Authorizing Provider: Monse Encarnacion MD Collected: 02/14/2016 12:33 PM Ordering Location: [facility] Received: 02/14/2016 02:04 PM Pathologist: Meredith Rocha MD Specimen: Colon Sigmoid Biopsy, biopsy erythema 02/15/2016 10:21 AM T [facility] Final Diagnosis 1. Large intestine, sigmoid colon, endoscopic biopsy: -- Lamina propria edema and vascular congestion Lauren 02/15/2016 10:[address] [facility] Gross Description The specimen is received in formalin in one container for gross and microscopic examination labeled with the patient's name Yamil Reinoso, and sigmoid biopsy, and is a pink-chapa tissue piece measuring 0.1 cm in greatest dimension. The specimen is stained with hematoxylin, wrapped in tissue paper and submitted in toto in cassette A1. JIMI/bharath 02/15/2016 10:21 AM T [facility] Microscopic Description Histologic sections show a fragment of large intestinal mucosa with mild lamina propria edema and vascular congestion. There is no significant active or chronic inflammation. There is no evidence of dysplasia or malignancy. Lauren 02/15/2016 10:21 AM T [facility] Pathology/Cytolo gy SIGMOID COLON BIOPSY SPECIMEN / Unknown 02/14/2016 12:33 PM CDT 02/14/2016 2:04 PM CDT Monse Encarnacion MD LAB - PATHOLOGY/CYTO [facility] [address], [place] [id number] * ENDOSCOPY, COLON, SCREENING (02/14/2016 11:15 AM CDT) Report Endoscopy POC _ Patient Name: Yamil Reinoso Procedure Date: 02/14/2016 11:15 AM Date of : 1955 Admit Type: Outpatient Age: 60 Gender: Male Attending MD: Monse Encarnacion, _ Procedure: Colonoscopy Indications: Follow-up of diverticulitis Providers: Monse Encarnacion (Doctor), iMmi Kapoor RN, Jerrica Call RN Patient Profile: [...] fiber diet. Procedure Code(s): --- Professional --- 05226, Colonoscopy, flexible; with biopsy, single or multiple --- Technical --- 01281, Colonoscopy, flexible; with biopsy, single or multiple [...] or abscess without bleeding CPT copyright 2015 [employer]. All rights reserved. The codes documented in this report are preliminary and upon aircraft time clerk review may be revised to meet current compliance requirements. Monse Villanuevaong, 02/14/2016 12:46:11 PM This report has been signed electronically. Number of Addenda: 0 Note Initiated On: 02/14/2016 11:15 AM [facility] 02/14/2016 11:1 5 AM CDT Monse Encarnacion MD GI PROCEDURE ORDERAB LES [facility] * XR ABD OBSTR SERIES (11/22/2015 12:00 PM CDT) Anatomical Region Laterality Modality Abdomen Radiographic Naya ging 11/22/2015 12:2 4 PM CDT Impressions 11/22/2015 12:52 PM CDT Negative for free intraperitoneal air. Edited by Lainey Balderas on 11/22/2015 12:37 PM Narrative 11/22/2015 12:52 PM CDT OBSTRUCTION SERIES. HISTORY: Abdominal pain. Views of the abdomen show a large amount of gas in large and small bowel. There is no free intraperitoneal air. Procedure Note Sandor Orr MD - 11/22/2015 OBSTRUCTION SERIES. HISTORY: Abdominal pain. Views of the abdomen show a large amount of gas in large and small bowel. There is no free intraperitoneal air. IMPRESSION Negative for free intraperitoneal air. Edited by Lainey Balderas on 11/22/2015 12:37 PM Monse Encarnacion MD DIAGNOSTIC IMAGING O RDERABLES * ENDOSCOPY, COLON, SCREENING (11/22/2015 10:25 AM CDT) Report Endoscopy POC _ Patient Name: Yamil Reinoso Procedure Date: 11/22/2015 10:25 AM Date of : 1955 Admit Type: Outpatient Age: 60 Gender: Male Attending MD: Monse Encarnacion, _ Procedure: Colonoscopy Indications: Follow-up of diverticulitis, Change in bowel habits Providers: Monse Encarnacion (Doctor), Annabelle Brennan RN, Amanda Christian, Splicer Apprentice Patient Profile: 60M pmh recent diverticulitis 1 month prior here for colonoscopy. Also noted some changes in bowel habits Referring MD: Perez Alcala MD (Referring MD) Medicines: Monitored Anesthesia Care Complications: No immediate complications. _ Procedure: After I obtained informed consent, the scope was passed under direct vision. Throughout the procedure, the patient's blood pressure, pulse, and oxygen saturations were monitored continuously. The Colonoscope was introduced through the anus and advanced to the sigmoid colon for evaluation. This was the intended extent. The colonoscopy was technically difficult and complex due to multiple diverticula in the colon, restricted mobility of the colon, significant looping, a tortuous colon and the patient's body habitus. Successful completion of the procedure was aided by withdrawing the scope and replacing with the pediatric endoscope. The quality of the bowel preparation was good. Impression: - Diverticulosis in the sigmoid colon. - Congested mucosa in the sigmoid colon. - Erythematous mucosa in the sigmoid colon. - The distal rectum and anal verge are normal on retroflexion view. Findings: The perianal and digital rectal examinations were normal. Multiple small and large-mouthed diverticula were found in the sigmoid colon. An area of moderately congested mucosa was found in the sigmoid colon. A patchy area of mildly erythematous mucosa was found in the sigmoid colon. The procedure was technically difficult despite the above maneuvers, and given presence of edema/inflammation , I did not want to proceed further and subject the risk of perforation The retroflexed view of the distal rectum and anal verge was normal and showed no anal or rectal abnormalities. _ Recommendation: - Repeat colonoscopy in 2 months because the examination was incomplete, and allow inflammation to subside Procedure Code(s): --- Professional --- 02723, 53, Colonoscopy, flexible; diagnostic, including collection of specimen(s) by brushing or washing, when performed (separate procedure) --- Technical --- 91083, 74, Colonoscopy, flexible; diagnostic, including collection of specimen(s) by brushing or washing, when performed (separate procedure) Diagnosis Code(s): --- Professional --- K63.89, Other specified diseases of intestine K57.32, Diverticulitis of large intestine without perforation or abscess without bleeding R19.4, Change in bowel habit K57.30, Diverticulosis of large intestine without perforation or abscess without bleeding --- Technical --- K63.89, Other specified diseases of intestine K57.32, Diverticulitis of large intestine without perforation or abscess without bleeding R19.4, Change in bowel habit K57.30, Diverticulosis of large intestine without perforation or abscess without bleeding CPT copyright 2015 [employer]. All rights reserved. The codes documented in this report are preliminary and upon aircraft time clerk review may be revised to meet current compliance requirements. Monse Encarnacion, 11/22/2015 11:27:42 AM This report has been signed electronically. Number of Addenda: 0 Note Initiated On: 11/22/2015 10:25 AM [facility] 11/22/2015 10:2 5 AM CDT Monse Encarnacion MD GI PROCEDURE ORDERAB LES [facility] * GROSS + MICRO EXAM (07/07/2005 4:19 PM SUPERVISOR TELEPHONE CLERKS) Only the most recent of2 resultswithin the time period is included. Result CASE NUMBER [id number] Comment: ORDERING PHYSICIAN DIEUDONNE KING SPECIMEN TYPE Colon Biopsy-SIGMOID Date 07/07/2005 Physician Ian King Gross Description The specimen is received in a formalin filled container labeled with the patient's name, Yamil Reinoso, and inflammation of sigmoid biopsy . It consists of a single chapa-red tissue measuring 0.5 x 0.2 x 0.1 cm. It is submitted entirely into a single cassette. MS/na Microscopic Exam Microsections reveals a fragment of colonic mucosa with mild and patchy chronic inflammation, slight fibrosis and vascular congestion. There is no evidence of atypia or malignancy. Gm/ Diagnosis I. Sigmoid, biopsy -- Patchy and mild chronic inflammation with slight fibrosis. Gm/ Regional Sales Representative [facility] [place] Ariana Erickson M.D. [place]. 07/08/2005 1045 <1> CPT code 07990 MISCELLANEOUS SAMPLES / Unknown 07/07/2005 4:19 PM SUPERVISOR TELEPHONE CLERKS 07/07/2005 4:20 PM SUPERVISOR TELEPHONE CLERKS Historical Provider LAB - PATHOLOGY/C YTOLOGY ORDERABLES Care Teams Tow Motor Operator Relationship Specialty Start Date End Date Perez Alcala MD [address] [place] [address], [address] [place] [address] PCP - General Family Medicine 10/14/15
--- OUTSIDE RECORDS SUMMARY | 2024-11-08 12:57 | XMS_ITS | Clinical Summary ---
Author Organization [facility] Address [address] [place] [address] Care Team Providers Care American Sign Language Teacher Name Role Phone Perez Alcala MD Primary Care Provider [phone] Source Comments [facility],non-owned Affiliates and Associated Physician Practices is amultiple site organization consisting of ambulatory clinics and hospital sitesin [place], [place], [place] and [place]. This disclosure is being madepursuant to the Care Everywhere program and may not contain all information available regarding this patient. Last updated 18.[facility] Allergies Active Allergy Reactions Criticality Noted Date Comments Extract Of Poison Yue 10/15/2015 Medications Be aware that medications may not be up to date on this document. Always verify current medications with the patient. No known medications Family History Medical History Relation Name Comments Diabetes Father Diverticulitis Mother Relation Name Status Comments Father Mother Alive Social History Tobacco Use Types Packs/Day Years [...] Mass Index 22.38 02/14/2016 11:17 AM CDT Plan of Treatment Health Maintenance Due Date Last Done Comments COLOGUARD (AGES 45-75) - COLON CA SCREENING 1955 CT COLONOGRAPHY - COLON CA SCREENING 1955 FIT - COLON CA SCREENING 1955 FLEX SIG - COLON CA SCREENING 1955 LIPID TESTING 1955 HEPATITIS C SCREENING 07/23/1972 DTAP/TDAP/TD VACCINES (1 - Tdap) 1973 PNEUMOCOCCAL VACCINE 50+ (1 of 2 - PCV) 1973 ZOSTER VACCINE (1 of 2) 2004 AAA SCREENING 2019 COVID-19 VACCINE (1 - season) 2024 INFLUENZA VACCINE (#1) 2024 DEPRESSION SCREENING 08/30/2024 COLON MONITORING 02/13/2026 02/14/2016, , 02/14/2016, Additional history exists COLONOSCOPY - COLON CA SCREENING 02/13/2026 02/14/2016, 02/14/2016, 02/14/2016, Additional history exists Colorectal Cancer Screening 02/13/2026 Respiratory Syncytial Virus (RSV) Vaccine Pt: or over 60 yrs (1 - 1-dose 75+ series) 2029 HEPATITIS B VACCINE Aged Out No longe r eligible based on patient's age to complete this topic HIB VACCINE Aged Out No longer eligi ble based on patient's age to complete this topic HPV VACCINE Aged Out No longer eligi ble based on patient's age to complete this topic MENINGOCOCCAL (Group B) VACCINE SHARED DECISION-MAKING Aged Out No longer eligible based on patient's age to complete this topic MENINGOCOCCAL GROUPS A/C/Y/W VACCINE Aged Out No longer eligible based on patient's age to complete this topic Procedures Procedure Name Priority Date/Time Associated Diagnosis [...] fiber diet. Procedure Code(s): --- Professional --- 95522, Colonoscopy, flexible; with biopsy, single or multiple --- Technical --- 28292, Colonoscopy, flexible; with biopsy, single or multiple [...] or abscess without bleeding CPT copyright 2015 [employer]. All rights reserved. The codes documented in this report are preliminary and upon b2b managed service sales exec review may be revised to meet current compliance requirements. Monse Encarnacion, 02/14/2016 12:46:11 PM This report has been signed electronically. Number of Addenda: 0 Note Initiated On: 02/14/2016 11:15 AM [facility] 02/14/2016 11:1 5 AM CDT Monse Encarnacion MD GI PROCEDURE ORDERAB LES [facility] from Last 3 Months or Most Recently Relevant to Health Maintenance Care Teams American Sign Language Teacher Relationship Specialty Start Date End Date Perez Alcala MD [address] [place] [phone] PCP - General Family Medicine 10/14/15
--- OUTSIDE RECORDS SUMMARY | 2024-11-08 12:57 | XMS_ITS | Continuity of Care Document ---
Author Organization [facility] Address [address] [place] [address] [address] [place] [address] Phone Care Team Providers Care Single Resource Boss Name Role Phone Andrew Xiao Unavailable Unavailable Procedures Procedure Date Office/outpatient Visit, Est Office/outpatient Visit, Est Remove Foreign Body From Eye Advance Directives Directive Yes / No Effective Date File Name No Information Encounters Encounter Description Practice Location Reason(s) For Visit Diagnoses Date Provider Providers Copied on Encounter Office/outpat ient Visit, [facility], [id number] [place] [address] [address], [place], [place], [id number], [place] tel:[phone] [facility] No Information Nov-0 9-200 9 Dameon Morales. [address] [facility] [address], [place], [place], [facility], . tel:[phone] Office/outpat ient Visit, [facility], [address] [place] [address] [address], [place], [place], [id number], [place] tel:[phone] [facility] No Information Nov-0 4-200 9 Octavio Reina. [address] [facility] , [address], [place], [place], [facility], [place]. tel:[phone] [facility], [address], [place], [place], [id number], [place] tel:[phone] [facility] No Information Apr-2 2200 9 Dameon Morales. [address] [facility] [address], [place], [address], [place]. tel:[phone] Family History Family Member Type Diagnosis Age At Onset No Information Payers Payer name Insurance type Covered democrat ID Authoriza tikimberley(s) [facility] Out Of State [id number] Social History Type Description Quantity Date Captured [...]
[2024-11-08 14:14] LABS: Vitamin D 25 Hydroxy 50.2 ng/mL
[2024-11-08 16:12] LABS: Alanine Aminotransferase 48 U/L (6-50); Albumin Level 4.7 g/dL (3.5-5.1); Alkaline Phosphatase 103 U/L (38-126); Anion Gap 11 mmol/L (4-12); Aspartate Amino Transferase 45 U/L (17-59); Bilirubin,Total 0.9 mg/dL (0.2-1.3); Blood Urea Nitrogen 24 mg/dL (9-20); Calcium 9.7 mg/dL (8.4-10.2); Carbon Dioxide 27 mmol/L (22-30); Chloride 101 mmol/L (98-107); Cholesterol 169 mg/dL (0-200); Estimated Glomerular Filt Rate 58; Glucose 112 mg/dL (65-110); HDL Direct 37 mg/dL; Potassium 4.4 mmol/L (3.4-5.0); Sodium 139 mmol/L (137-145); Triglycerides 101 mg/dL (<150)
[2024-11-08 16:23] LABS: LDL Cholesterol Direct 99 mg/dL
== END 2024-11-08 11:12 | disposition home or self-care (01) ==
PROVIDERS: PCP Emergency Medicine; Visit Provider Emergency Medicine
DX: E78.5 Hyperlipidemia, unspecified (principal); E55.9 Vitamin D deficiency, unspecified; Z12.5 Encounter for screening for malignant neoplasm of prostate
CPT/HCPCS: 36415; 80053; 80061; 82306; 84153; G0103

== ENCOUNTER 2025-03-13 09:30 | Outpatient (CLI) | payer OTHER, SELFPAY ==
--- OUTSIDE RECORDS SUMMARY | 2025-03-13 09:51 | XMS_ITS | Clinical Summary ---
Author Organization [facility] [employer] Address [address] [place] [address] Care Team Providers Care Transitions Manager Name Role Phone Perez Alcala MD Primary Care Provider [phone] Source Comments [facility],non-owned Affiliates and Associated Physician Practices is amultiple site organization consisting of ambulatory clinics and hospital sitesin [place], [place], [place] and [place]. This disclosure is being madepursuant to the Care Everywhere program and may not contain all information available regarding this patient. Last updated 18.[facility] Allergies Active Allergy Reactions Criticality Noted Date Comments Extract Of Poison Yue 10/15/2015 Medications * Be aware that medications may not be up to date on this document. Alwaysverify current medications with the patient. 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 Procedure Code(s): --- Professional --- 23929, Colonoscopy, flexible; with biopsy, single or multiple --- Technical --- 96533, Colonoscopy, flexible; with biopsy, single or multiple [...] or abscess without bleeding CPT copyright 2015 [place] [employer]. All rights reserved. The codes documented in this report are preliminary and upon music video producer review may be revised to meet current compliance requirements. Monse Encarnacion, 02/14/2016 12:46:11 PM This report has been signed electronically. Number of Addenda: 0 Note Initiated On: 02/14/2016 11:15 AM [facility] 02/14/2016 11:1 5 AM CDT Monse Encarnacion MD GI PROCEDURE ORDERABLES Edited R esult - Final [facility] from Last 3 Months or Most Recently Relevant to Health Maintenance Insurance Care Teams Transitions Manager Relationship Specialty Start Date End Date Perez Alcala MD PCP - General Family Medicine 10/14/15
--- OUTSIDE RECORDS SUMMARY | 2025-03-13 09:51 | XMS_ITS | Referral Summary ---
Author Organization [facility] Address [address] [place] [id number] Care Team Providers Care Biomedical Equipment Support Specialist Name Role Phone Andi Bolanos MD Primary Care Provider [phone] Allergies Active Allergy Reactions Criticality Noted Date Comments Poison Yue Extract Rash Medium 10/15/2015 Medications amLODIPine (NORVASC) 5 mg tablet Take 1 tablet (5 mg total) by mouth every morning 4 Active ibuprofen (AdviL) 200 mg tab/cap Take 1 tablet/capsule (200 mg total) by mouth every 6 (six) hours as needed for pain Active calcium carbonate (TUMS ORAL) Take by mouth as needed Active acetaminophen 500 mg capsuleIndicati ons:Pain Take 2 capsules (1,000 mg total) by mouth every 6 (six) hours as needed for pain 4 Active oxyCODONE (ROXICODONE) 5 mg immediate release tabletIndicatio ns:Pain Take 1-2 tablets (5-10 mg total) by mouth every 4 (four) hours as needed for pain 15 tablet 4 Active docusate sodium (COLACE) 100 mg capsuleIndicati ons:constipatio n Take 1 capsule (100 mg total) by mouth 2 (two) times a day as needed for constipation (for constipation while taking oxycodone) with a glass of water 30 capsule 2 4 Active sodium, potassium & mag sulfates (SUPREP BOWEL KIT) 17.5-3.13-1.6 gram recon solnIndications :Bowel Evacuation Drink 1 bottle at 6PM the night before procedure. Drink 2nd bottle four hours prior to leaving home. 354 mL 4 Active Active Problems Problem Noted Date Diagnosed Date Diverticulitis 02/10/2024 Social History Tobacco Use Types Packs/Day Years Used Date Smoking Tobacco: Every Day Cigarettes 0.5 51.5 Started: 1973 Smokeless Tobacco: Never Tobacco Cessation:Ready to Q uit: Not Asked; Counseling Given: Not Answered AUDIT-C Answer Date Recorded Q1: How often do you have a drink containing alc ohol? Monthly or less 06/08/2024 Q2: How many drinks containi ng alcohol do you have on a typical day when you are drinking? 1 or 2 06/08/2024 Q3: How often do you have si x or more drinks on one occasion? Never 06/08/2024 Personal Safety Answer Date Recorded Have you ever been in or are you currently in a harmful physical or emotional relationship or is someone making you feel afraid or unsafe? 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 Gender Identity Not on file Sexual Orientation Not on file Last Filed Vital Signs Vital Sign Reading Time Taken Comments Blood Pressure 167/87 06/08/2024 1:40 PM CDT Pulse 60 06/08/2024 1:40 PM CDT Temperature 36 C (96.8 F) 06/08/2024 1:19 PM CDT Respiratory Rate 23 06/08/2024 1:40 PM CDT Oxygen Saturation 100% 06/08/2024 1:40 PM CDT Inhaled Oxygen Concentration - - Weight 68.9 kg (151 lb 12.8 oz) 024 10:58 AM CDT Height 182.9 cm (6' 0.01) 03/07/2024 1 0:58 AM CDT Body Mass Index 20.58 03/07/2024 10:58 AM CDT Plan of Treatment Not on file Procedures Procedure Name Priority Date/Time Associated Diagnosis Comments COLONOSCOPY 06/08/2024 12:38 PM CDT from Last 3 Months or Most Recently Relevant to Health Maintenance Results * Colonoscopy (06/08/2024 12:38 PM CDT) Anatomical Region Laterality Modality Other Narrative Procedure Note Adelia Acuna MD - 06/08/2024 12:38 PM CDT [facility] Patient Name: Yamil Reinoso Procedure Date: 06/08/2024 12:38PM Date of : 1955 Admit Type: Outpatient Age: 68 Gender: Male Attending MD: Adelia Acuna M.D. Room: [facility] ENDOSCOPY ROOM 02 Note Status: Finalized Procedure: Colonoscopy Indications: Screening for colorectal malignant neoplasm Referring MD: Andi Bolanos M.D. Providers: Adelia Acuna M.D. Medicines: Propofol per Anesthesia, Monitored AnesthesiaCare Complications: No immediate complications. Estimated blood loss: Minimal. Estimated Blood Loss: Estimated blood loss: none. Procedure: Pre-Anesthesia Assessment: - Prior to the procedure, a History and Physicalwas performed, and patient medications and allergieswere reviewed. The patient is competent. The risks and benefits of the procedure and the sedation optionsand risks were discussed with the patient. Allquestions were answered and informed consent was obtained. Patient identification and proposed procedure were verified by the physician, the nurse, the anesthesiologist, the township clerk and thetechnician in the pre-procedure area in the procedure room inthe endoscopy suite. Mental Status Examination: alertand oriented. Prophylactic Antibiotics: The patientdoes not require prophylactic antibiotics. Prior Anticoagulants: The patient has taken noanticoagulant or antiplatelet agents. ASA Grade Assessment: II -A patient with mild systemic disease. After reviewing the risks and benefits, the patient was deemed in satisfactory condition to undergo the procedure.The anesthesia plan was to use monitored anesthesiacare (MAC). Immediately prior to administration of medications, the patient was re-assessed foradequacy to receive sedatives. The heart rate, respiratory rate, oxygen saturations, blood pressure, adequacyof pulmonary ventilation, and response to care were monitored throughout the procedure. The physical status of the patient was re-assessed after the procedure. - Immediately prior to administration ofmedications, the patient was re-assessed for adequacy to receive sedatives. The benefits, risks and alternatives of theprocedure and sedation were discussed and informed consentwas obtained. All questions were answered. Please referto the signed informed consent document in the medical record. The scope was passed under direct vision.The [id number] was introduced through the anusand advanced to the the terminal ileum, with identification of the appendiceal orifice and IC valve. The colonoscopy was performed without difficulty. The patient tolerated the procedurewell. The quality of the bowel preparation was evaluated using the BBPS ([place] Bowel Preparation Scale)with scores of: Right Colon = 3, Transverse Colon = 3and Left Colon = 3 (entire mucosa seen well with no residual staining, small fragments of stool oropaque liquid). The total BBPS score equals 9. The bowel preparation used was SUPREP via split dose instruction. Bowel prep was administered using asplit dose. Findings: The perianal and digital rectal examinations were normal. The terminal ileum appeared normal. Two sessile polyps were found in the descending colon. The polypswere 2 to 4 mm in size. These polyps were removed with a cold snare.Resection and retrieval were complete. Estimated blood loss was minimal. To prevent bleeding after the polypectomy, one hemostatic clip was successfully placed. Clip habitat conservation planner: [employer]. There wasno bleeding at the end of the procedure. There was evidence of a prior side to end colo-rectal anastomosis inthe recto-sigmoid colon. This was patent and was characterized by healthy appearing mucosa and an intact staple line. The anastomosis was traversed. The exam was otherwise without abnormality on direct and retroflexion views. Impression: - The examined portion of the ileum was normal. - Two 2 to 4 mm polyps in the descending colon, removed with a cold snare. Resected and retrieved. Clip was placed. Clip habitat conservation planner: [employer]. - Patent end-to-side colo-rectal anastomosis, characterized by healthy appearing mucosa and an intact staple line. - The examination was otherwise normal on directand retroflexion views. Recommendation: - Patient has a contact number available for emergencies. The signs and symptoms of potential delayed complications were discussed with thepatient. Return to normal activities tomorrow. Written discharge instructions were provided to thepatient. - Resume previous diet. - No aspirin, ibuprofen, naproxen, or other non-steroidal anti-inflammatory drugs for 5 daysafter polyp removal. - Await pathology results. - Repeat colonoscopy in 5 years for adenoma surveillance. - Return to referring physician as previously scheduled. - A polyp or polyps were removed during your colonoscopy today. After the pathology result ofthe polyp(s) is reviewed, the doctor who performedyour colonoscopy will recommend follow-up colonoscopy to you based on current guidelines by gastroenterology societies: - If only small hyperplastic polyps from the rectumor sigmoid were removed, repeat the colonoscopy in 10 years. - If 1 or 2 polyps less than 1 cm in size are adenomas, repeat the colonoscopy in 5 years. - If 3 or more polyps are adenomas, repeat the colonoscopy in 3 years. - If there are 10 or more adenomas, repeat the colonoscopy in 1 year. - If any polyp is 10 mm or greater in size, has villous histology or high grade dysplasia,repeat the colonoscopy in 3 years. - If a polyp greater than 2 cm was removed with a piecemeal technique, repeat the colonoscopy in 6 months to be certain that there is no residualpolyp. - Sessile serrated polyps are treated like adenomas for surveillance purposes. Attending Participation: I personally performed the entire procedure. Adelia Acuna M.D. 06/08/2024 1:19:42 PM Number of Addenda: 0 Note Initiated On: 06/08/2024 12:38 PM Recognized by the [place] [employer] for promoting quality in endoscopy Adelia Acuna MD ENDOSCOPY PROCEDURES Final Result from Last 3 Months or Most Recently Relevant to Health Maintenance Insurance [employer] ADVANTAGE CHOICE PPO [employer] ADVANTAGE CHOICE PPO Advance Directives For more information, please contact: [phone] * Full Code (Latest Code Status on File) Date Activated Date Inactivated Comments 06/08/2024 11:44 AM 06/08/2024 5:47 PM * Full Code Date Activated Date Inactivated Comments 02/23/2024 4:02 PM 02/27/2024 2:06 PM Care Teams Biomedical Equipment Support Specialist Relationship Specialty Start Date End Date Andi Bolanos MD [address] [place] [address] [address] PCP - General Family Medicine 01/05/24
--- OUTSIDE RECORDS SUMMARY | 2025-03-13 09:51 | XMS_ITS | Clinical Summary ---
Author Organization [facility] Address [address] [place] [id number] Care Team Providers Care Supervisor Machine Setter Name Role Phone Andi Bolanos MD Primary Care Provider [phone] Allergies Active Allergy Reactions Criticality Noted Date [...] Problem Noted Date Diagnosed Date Diverticulitis 02/10/2024 Surgical History Surgery Date Site/Laterality Comments COLONOSCOPY 08/30/2023 - 09/29/2023 x3 LUMBAR SPINE SURGERY COLON SURGERY 02/23/2024 Robot assisted sigmoid resection with colorectal anastomosis Medical History Medical History Date Comments Hypertension Diverticulitis of colon Family History Medical History Relation Name Comments Anesthesia problems Neg Hx Social History Tobacco Use Types Packs/Day Years [...] on file 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 Gender Identity Not on file Sexual Orientation Not on file Obstetrics History Last Filed Vital Signs Vital Sign Reading [...] 03/07/2024 10:58 AM CDT Plan of Treatment Health Maintenance Due Date Last Done Comments Depression Screening 1955 Hepatitis C Screening 1955 DTaP/Tdap/Td Vaccine (1 - Tdap) 1965 Hepatitis B Screening 1972 Lung Cancer Screening 2004 Abdominal Aortic Aneurysm (A AA) Screen 2019 Well Visit 65+ 2019 Covid-19 Vaccine (5 - 2023-2 5 season) 2024 01/14/2022, 06/03/2021, 10/31/2020, Additional history exists Influenza Vaccine (#1) 2025 07/15/2020, 2019 Fall Risk Assessment 06/08/2025 06/08/2024 Colon Cancer Screening-Colonoscopy 06/08/20342023 Zoster Vaccine Completed 07/15/2020, 11/03/2019 Pneumococcal vaccine 65+ Completed 01/18/2023 Procedures Procedure Name Priority Date/Time Associated Diagnosis Comments COLONOSCOPY 06/08/2024 12:38 PM CDT from Last 3 Months or Most Recently Relevant to Health Maintenance Results * Colonoscopy (06/08/2024 12:38 PM CDT) Anatomical Region Laterality Modality Other Narrative Procedure Note Adelia Acuna MD - 06/08/2024 12:38 PM CDT [facility] Patient Name: Yamil Reinoso Procedure Date: 06/08/2024 12:38PM Date of : 1955 Admit Type: Outpatient Age: 68 Gender: Male Attending MD: Adelia Acuna M.D. Room: [facility] ENDOSCOPY ROOM 02 Note Status: Finalized Procedure: [...] the physician, the nurse, the anesthesiologist, the internal medicine physician and thetechnician in the pre-procedure area in [...] The scope was passed under direct vision.The [id number] was introduced through the anusand advanced to the the terminal ileum, with identification of the appendiceal orifice and IC valve. The colonoscopy was performed without difficulty. The patient tolerated the procedurewell. The quality of the bowel preparation was evaluated using the BBPS ([place] Bowel Preparation Scale)with scores of: Right Colon [...] one hemostatic clip was successfully placed. Clip healthcare technician: [employer] There wasno bleeding at the end of [...] Resected and retrieved. Clip was placed. Clip healthcare technician: [employer]. - Patent end-to-side colo-rectal anastomosis, characterized by [...] On: 06/08/2024 12:38 PM Recognized by the [place] [employer] for promoting quality in endoscopy Adelia Acuna MD ENDOSCOPY PROCEDURES Final Result from Last 3 Months or Most Recently Relevant to Health Maintenance Insurance [employer] ADVANTAGE CHOICE PPO [employer] ADVANTAGE CHOICE PPO Advance Directives For more information, please contact: [phone] * Full Code (Latest Code Status on File) Date Activated Date Inactivated Comments 06/08/2024 11:44 AM 06/08/2024 5:47 PM * Full Code Date Activated Date Inactivated Comments 02/23/2024 4:02 PM 02/27/2024 2:06 PM Care Teams Supervisor Machine Setter Relationship Specialty Start Date End Date Andi Bolanos MD [facility] [facility] [address] [address] [place], [place] [id number] PCP - General Family Medicine 01/05/24
[2025-03-13 15:02] LABS: Alanine Aminotransferase 40 U/L (6-50); Albumin Level 4.6 g/dL (3.5-5.1); Alkaline Phosphatase 87 U/L (38-126); Anion Gap 10 mmol/L (4-12); Aspartate Amino Transferase 58 U/L (17-59); Bilirubin,Total 0.8 mg/dL (0.2-1.3); Blood Urea Nitrogen 24 mg/dL (9-20); Calcium 9.8 mg/dL (8.4-10.2); Carbon Dioxide 27 mmol/L (22-30); Chloride 102 mmol/L (98-107); Cholesterol 180 mg/dL (0-200); Estimated Glomerular Filt Rate 51; Glucose 108 mg/dL (65-110); HDL Direct 37 mg/dL; Potassium 4.2 mmol/L (3.4-5.0); Sodium 139 mmol/L (137-145); Total Protein 8.3 g/dL (6.3-8.2); Triglycerides 104 mg/dL (<150)
[2025-03-13 15:03] LABS: Hematocrit 50.8 % (42.0-52.0); Hemoglobin 16.6 g/dL (14.0-18.0); Immature Granulocyte Percent A 0.3 % (0-0.5); Lymphocytes Absolute Auto 2.89 K/mm3 (0.9-3.2); Mean Corpuscular HGB Conc 32.7 g/dl (32-36); Mean Corpuscular Hemoglobin 30.6 pg (26-34); Mean Corpuscular Volume 93.7 fl (80-100); Nucleated Red Blood Cells Absolute Auto 0.000 K/mm3 (0.0-0.012); Nucleated Red Blood Cells Perc 0.0 % (0.0-0.2); Platelet Count Result 204 k/mm3 (150-375); Red Blood Count 5.42 M/mm3 (4.6-6.20); White Blood Count 10.8 K/mm3 (4.5-10.0)
== END 2025-03-13 09:31 | disposition home or self-care (01) ==
LOC: ANHGOSHLAB 09:31
PROVIDERS: PCP Emergency Medicine; Visit Provider Emergency Medicine
DX: E55.9 Vitamin D deficiency, unspecified (principal); I10 Essential (primary) hypertension; E78.5 Hyperlipidemia, unspecified
CPT/HCPCS: 36415; 80053; 80061; 82306; 85025

== ENCOUNTER 2025-03-13 09:53 | Outpatient (CLI) | payer OTHER, SELFPAY ==
--- NOTE | ~2025-03-13 | XR_ITS ---
Lumbosacral Spine: AP and lateral views Clinical History: Pain Findings: There is dextroscoliosis. The vertebral bodies and posterior elements are intact. There is moderate degenerative disc narrowing at L2-L3, and L5-S1. There is moderate facet arthropathy at the lower lumbar spine. The sacroiliac joints are normally outlined. Impression: Dextroscoliosis with mild degenerative change, as above. Reviewed, dictated and finalized at location M. Impression: Dextroscoliosis with mild degenerative change, as above.
--- NOTE | ~2025-03-13 | XR_ITS ---
AP view of the pelvis and AP and lateral views of the bilateral hips Clinical history: Pain Findings: No acute fracture or dislocation is seen. Osseous alignment is anatomic. Bilateral hip and SI joint spaces are preserved. Soft tissues are unremarkable. Impression: No significant abnormality is seen. Reviewed, dictated and finalized at location . Impression: No significant abnormality is seen.
== END 2025-03-13 09:54 | disposition home or self-care (01) ==
PROVIDERS: PCP Emergency Medicine; Visit Provider Emergency Medicine
DX: M41.86 Other forms of scoliosis, lumbar region (principal); M51.369 Other intervertebral disc degeneration, lumbar region without mention of lumbar back pain or lower extremity pain; M51.379 Other intervertebral disc degeneration, lumbosacral region without mention of lumbar back pain or lower extremity pain; G89.29 Other chronic pain; M25.559 Pain in unspecified hip
CPT/HCPCS: 72100; 73521

== ENCOUNTER 2025-05-10 13:15 | Outpatient (RCR) | payer OTHER, SELFPAY ==
--- NOTE | 2025-04-18 16:26 | OPREHPOC ---
Outpatient Therapy Plan of Care This is a Multidisciplinary Plan of Care that may contain components documented by all disciplines (PT, OT, and ST.) PT Problem 1 PT Problem #1 Knowledge Deficit PT Goal 1 Goal / Goal Update 1* independent with HEP 2* correct lifting technique from the floor Target Visit 6 PT Problem 2 PT Problem #2 Pain PT Goal 1 Goal / Goal Update 1* pain rating of 6/10 at worst 2* no pain into R or L buttocks Target Visit 6 PT Problem 3 PT Problem #3 Impaired Flexibility PT Goal 1 Goal / Goal Update increase flexibility of hips, to decrease strain over lumbar-sacral areas: hamstring length with supine SLR 70 1* R 2* L piriformis length with supine cross leg stretch, past mid line of body 3* R 4* L Target Visit 6 PT Problem 4 PT Problem #4 Impaired Strength PT Goal 1 Goal / Goal Update 1* pt perform correct lifting with bilateral UE 20 # box lift from waist/floor height 2* gross strength of abdominal and trunk 4+/5 Target Visit 6
--- NOTE | 2025-04-18 16:26 | PTOPEVAL1 ---
Assessment and note entered by Susana Perez, PT Evaluation Information Assessment Status Evaluation ICD-10 Condition Codes (PT) Pain in low back M54.50 Onset about 1 year Subjective Information chronic issues with back pain, over the past year, more issues with walking and now not able to walk more than 10 minutes due to back pain x ray of lumbar: moderate degenerative changes L 2 -3 and L 5- S1, moderate facet arthropathy, dextroscoliosis have had PT in the past, been awhile ago; have pain management appt in Apr. 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 Back Index self rating of 38% limitation in activity level. He reports walking is limited to about 10 minutes and have to sit due to pain. Lumbar xray reports changes as above. He is active, golfs and not doing any fitness exercises for his back. With the evaluation: he has decreased mobility of thoracic and lumbar spine; tightness over both hamstrings and piriformis muscles bilateral; posture with flat lumbar and thoracic spine and scoliosis. Skilled PT services are indicated for modalities to decrease pain, therapeutic exercises to increase flexibility of trunk and hips with education for HEP and body mechanics and pain management techniques. Plan of Care Interventions Electrical Stimulation,Hot Pack/Cold Pack,Manual Therapy,Mechanical Traction,Neuro Re-education, Patient/Caregiver Education,Therapeutic Activities ,Therapeutic Exercise,Ultrasound,Other Other Interventions taping PT Services Indicated Yes Treatment Frequency and 1x/wk for 6 visits Duration These treatments will address the objective and functional deficits as defined above. The patient will be advanced safely and appropriately in order for the patient to progress towards his/her prior level of function. Additional exercises will be introduced and as well as a comprehensive home exercise program upon discharge, if needed, ?to ensure carryover of functional gains achieved in the clinic. This treatment plan has been reviewed and agreement upon by the patient.
== END 2025-07-17 23:59 | disposition home or self-care (01) ==
LOC: ANHPT 13:15
PROVIDERS: PCP Emergency Medicine; Visit Provider Emergency Medicine
DX: M54.50 Low back pain, unspecified (principal); M25.559 Pain in unspecified hip
CPT/HCPCS: 97014; 97110; 97140; 97161; 97530; G0283

== ENCOUNTER 2025-05-15 07:34 | Day surgery (SDC) | payer OTHER, SELFPAY ==
--- OUTSIDE RECORDS SUMMARY | 2009-07-08 09:45 | XMS_ITS | Continuity of Care Document ---
Author Organization [facility] Address [address] [place] [address] [address] [place] [address] Phone Care Team Providers Care Agriculture Consultant Name Role Phone Andrew Xiao Unavailable Unavailable Procedures Procedure Date Office/outpatient Visit, Est Office/outpatient Visit, Est Remove Foreign Body From Eye Advance Directives Directive Yes / No Effective Date File Name No Information Encounters Encounter Description Practice Location Reason(s) For Visit Diagnoses Date Provider Providers Copied on Encounter Office/outpat ient Visit, [facility], [id number] [place] [address] [address], [place], [place], [id number], [place] tel:[phone] [facility] No Information Nov-0 9-200 9 Dameon Morales. [address] [facility] [address], [place], [place], [facility], . tel:[phone] Office/outpat ient Visit, [facility], [id number] [place] [address] [address], [place], [place], [id number], [place] tel:[phone] [facility] No Information Nov-0 4-200 9 Octavio Reina. [address] , [address], [place], [place], [facility], [place]. tel:[phone] [facility], [address], [place], [place], [id number], [place] tel:[phone] [facility] No Information Apr-2 2200 9 Dameon Morales. [address] [facility] [address], [place], [address], [place]. tel:[phone] Family History Family Member Type Diagnosis Age At Onset No Information Payers Payer name Insurance type Covered republican ID Authoriza tikimberley(s) [facility] Out Of State [id number] Social History Type Description Quantity Date Captured Comments Sex Male Smoking Status No Information Chief Complaint And Reason For Visit No Information Reason For Referral Reason For Referral No Information History Of Present Illness Encounter Date Complaint History Of Prese nt Illness No Information Functional Status Date Functional Assessmen t No Information Instructions Date Instruction Additional Infor mation No Information Assessments Type Assessment Date No Information Patient Care Teams Name Effective Dates (start - stop) Status Members No Information
[2025-05-09 12:53] VITALS: BMI 21.7
--- NOTE | ~2025-05-15 | XR_ITS ---
XR fluoroscopy no charge Indication: Intra-articular steroid injection bilateral SI joints TECHNIQUE: Fluoroscopy used during Intra-articular steroid injection bilateral SI joints performed by [Javy Hinton MD] on 05/15/2025. 20 seconds of fluoroscopy with 15 fluoroscopic images captured. FINDINGS: Correlate with procedure note. IMPRESSION: Fluoroscopy used during Intra-articular steroid injection bilateral SI joints. Reviewed, dictated and finalized at location O.
[2025-05-15 08:15] VITALS: BP 178/86; PULSE 57; RESP 16; TEMP 36.4; O2SAT 100
--- OUTSIDE RECORDS SUMMARY | 2025-05-15 08:16 | XMS_ITS | Clinical Summary ---
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 Patient Name: Yamil Reinoso Procedure Date: 06/08/2024 12:38PM Date of : 1955 Admit Type: Outpatient Age: 68 Gender: Male Attending MD: Adelia Acuna M.D. Room: [facility] ENDOSCOPY ROOM 02 Note Status: Finalized Procedure: [...] the physician, the nurse, the anesthesiologist, the underground mining section foreman and thetechnician in the pre-procedure area in [...] The scope was passed under direct vision.The [id number] was introduced through the anusand advanced to the the terminal ileum, with identification of the appendiceal orifice and IC valve. The colonoscopy was performed without difficulty. The patient tolerated the procedurewell. The quality of the bowel preparation was evaluated using the BBPS ([place] Bowel Preparation Scale)with scores of: Right Colon [...] one hemostatic clip was successfully placed. Clip neurosurgery physician: [employer]. There wasno bleeding at the end of [...] Resected and retrieved. Clip was placed. Clip neurosurgery physician: [employer]. - Patent end-to-side colo-rectal anastomosis, characterized by [...] On: 06/08/2024 12:38 PM Recognized by the [place] [employer] for promoting quality in endoscopy Adelia Acuna MD ENDOSCOPY PROCEDURES Final Result from Last 3 Months or Most Recently Relevant to Health Maintenance Insurance [employer] ADVANTAGE CHOICE PPO [employer] ADVANTAGE CHOICE PPO Advance Directives For more information, please contact: [phone] * Full Code (Latest Code Status on File) Date Activated Date Inactivated Comments 06/08/2024 11:44 AM 06/08/2024 5:47 PM * Full Code Date Activated Date Inactivated Comments 02/23/2024 4:02 PM 02/27/2024 2:06 PM Care Teams Network Control Technician Relationship Specialty Start Date End Date Andi Bolanos MD [facility] [place], [place] [phone] PCP - General Family Medicine 01/05/24
--- OUTSIDE RECORDS SUMMARY | 2025-05-15 08:18 | XMS_ITS | Clinical Summary ---
Author Organization [facility] Address [address] [place] [address] Care Team Providers Care Laboratory Phlebotomist Name Role Phone Perez Alcala MD Primary Care Provider [phone] Source Comments [facility],non-owned Affiliates and Associated Physician Practices is amultiple site organization consisting of ambulatory clinics and hospital sitesin [place], [place], [place] and [place]. This disclosure is being madepursuant to the Care Everywhere program and may not contain all information available regarding this patient. 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 Procedure Code(s): --- Professional --- 83689, Colonoscopy, flexible; with biopsy, single or multiple --- Technical --- 67906, Colonoscopy, flexible; with biopsy, single or multiple [...] or abscess without bleeding CPT copyright 2015 [employer]. All rights reserved. The codes documented in this report are preliminary and upon template maker review may be revised to meet current compliance requirements. Monse Encarnacion, 02/14/2016 12:46:11 PM This report has been signed electronically. Number of Addenda: 0 Note Initiated On: 02/14/2016 11:15 AM [facility] ENDOSCOPY 02/14/2016 11:1 5 AM CDT Monse Encarnacion MD GI PROCEDURE ORDERABLES Edited R esult - Final [facility] ENDOSCOPY from Last 3 Months or Most Recently Relevant to Health Maintenance Insurance Care Teams Laboratory Phlebotomist Relationship Specialty Start Date End Date Perez Alcala MD PCP - General Family Medicine 10/14/15
--- NOTE | 2025-05-15 08:46 | WPDHPUPDATE1 ---
History and Physical Update Update Date/Time: 05/15/25 08:46 History and Physical has been reviewed, including an updated exam of the patient. There are NO changes in the patient's condition. Risks, benefits, and alternatives have been discussed and questions answered. Patient agrees to proceed with procedure.
--- NOTE | 2025-05-15 08:47 | W.PM.PROC2 ---
Procedure Note - Detailed Date of Procedure 05/15/25 Pre-op Diagnosis sacroiliitis, bilateral SI joint arthropathy Post-op Diagnosis Same Procedure Performed Bilateral Sacroiliac Joint Steroid Injection under Fluoroscopic Guidance and with Contrast Control. Surgeon Javy Hinton MD Workers Compensation Coordinator None Anesthesia Local Description of Procedure INFORMED CONSENT: Risks, benefits and alternatives to the procedure were discussed in detail with the patient who expressed explicit understanding and consent to proceed. Patient was informed verbally and in written form regarding the risks associated with the procedure including the low risk of serious infection, bleeding/bruising, allergic reaction, nerve or organ injury, paralysis, procedural site pain or discomfort, worsening pain and/or mobility, failure to treat and/or disfigurement. The patient expressed explicit understanding and consent to proceed. All materials required for the procedure were available prior to procedure start. Site and side were marked prior to procedure and confirmed in the presence of the patient. PROCEDURE IN DETAIL: The patient was brought to the procedural suite and placed in the prone position. Patient was made comfortable with use of pillows under the head/chest, hips and ankles. Skin overlying the injection site on the affected side(s) was prepared broadly with ChloraPrep applicator and draped in a sterile manner. Aseptic technique was used throughout. The right SI joint was identified in the AP view and contralateral oblique angulation with caudal tilt was utilized to optimize visualization of the inferior and medial joint line representing the posterior portion of the joint. Local anesthesia was established by infiltration with approximately 5 mL of 2% lidocaine via a 1-1/2 inch 27-gauge needle. A 22-gauge 3.5 inch Quincke spinal needle was advanced until the needle entered the inferior third of the joint space approximately 1cm cephalad from its most inferior point. In the AP view, 0.5 mL of Omnipaque 300 contrast medium was injected after negative aspiration for CSF, blood or other bodily fluid, showing appropriate intra-articular spread of contrast without evidence of intravascular, perineural or intrathecal placement. A 1.5 mL solution containing 5 mg of dexamethasone in 0.5% PF bupivacaine was injected after repeat negative aspiration. Appropriate spread of the injectate was confirmed with washout of previous injected contrast. No parasthesias were elicited. Needle was removed completely intact without difficulty. The same exact procedure was repeated for all remaining levels on the contralateral side, left SI joint, modified as necessary to accommodate for the new target location with identical findings/results and no evidence of complication. Images were saved and documented in the patient chart. Patient's skin was cleansed and sterile bandage applied. The patient tolerated the procedure well. The patient was transported to the recovery area in stable condition where they were observed for an appropriate amount of time prior to discharge, without evidence of complication. The patient was instructed to avoid excessive activity for the next 48 hours, including climbing and frequent use of stairs. Showers only for 48 hours. They were instructed not to drive or operate heavy machinery for 24 hours. They are to monitor for severe headaches, fevers, chills, night sweats, erythema/swelling at the site or any other signs of infection, bleeding/bruising, bowel or bladder changes as well as new pain, weakness or numbness in the upper or lower extremity. Should they notice these changes, they are instructed to call our office immediately or report directly to the nearest Emergency Department if no answer or if after posted office hours. COMPLICATIONS: None COMMENTS: None CONTRAST WASTED: 29mL Omnipaque 300. Complications No immediate complications Condition Stable Disposition Same day [facility] Billing Surgery - Charge Forward: Surgery Billing
[2025-05-15] MEDS: BUPivacaine HCL 0.5% 10 ML AMP INFILTRATE (09:17)
[2025-05-15 09:19] VITALS: BP 165/70; PULSE 56; RESP 17; O2SAT 99
[2025-05-15] MEDS: dexAMETHasone SOD PHOS INJ 10 MG/ML 1 ML VIAL IM (09:20)
[2025-05-15 09:30] VITALS: BP 199/86; PULSE 58; RESP 16; O2SAT 100
== END 2025-05-15 09:42 | disposition home or self-care (01) ==
PROVIDERS: PCP Emergency Medicine; Visit Provider Anesthesiology Pain Medicine
PROC: (CPT G0260; principal; 2025-05-15 08:50)
DX: M46.1 Sacroiliitis, not elsewhere classified (principal)
CPT/HCPCS: G0260; 27096; 99199; J1100